=== PATIENT | male | born 1935 | race Caucasian/White ===

== ENCOUNTER 2017-05-22 17:55 | Emergency (ER) | payer MEDICARE ==
[2017-05-22 18:05] VITALS: BP 139/74
[2017-05-22 18:45] VITALS: BP 138/80
[2017-05-22 18:55] LABS: PLATELET COUNT 212 x10^3mcL (130-400)
[2017-05-22 19:12] LABS: CALCIUM 9.5 mg/dL (8.5-10.1); CARBON DIOXIDE 28.8 mmol/L (21-32); CHLORIDE SERUM 103 mmol/L (98-107); CREATININE SERUM 1.8 mg/dL (0.7-1.3); GLUCOSE SERUM 254 mg/dL (74-106); POTASSIUM SERUM 3.2 mmol/L (3.5-5.1); SODIUM SERUM 141 mmol/L (136-145)
[2017-05-22 19:17] LABS: ALBUMIN 3.4 g/dL (3.4-5.0); ALKALINE PHOSPHATASE 138 U/L (46-116); ALT/SGPT 48 U/L (16-63); AST/SGOT 66 U/L (15-37); BAND NEUTROPHIL 5 % (0-10); BASOPHIL 0 % (0-2); BILIRUBIN TOTAL 0.63 mg/dL (0.20-1.00); MONOCYTE 9 % (0-7); SEGMENTED NEUTROPHILS 63 % (37-75)
[2017-05-22 19:25] LABS: PLATELET MORPHOLOGY PLATELETS NORMAL; rbc morphology (normal/abnorm) ABNORMAL (NORMAL)
== END 2017-05-22 18:45 | disposition short-term general hospital (02) ==
LOC: ED 17:55
PROVIDERS: Emergency Medicine
DX: I21.09 ST elevation (STEMI) myocardial infarction involving other coronary artery of anterior wall (principal); I46.9 Cardiac arrest, cause unspecified; I10 Essential (primary) hypertension; E11.9 Type 2 diabetes mellitus without complications; Z88.2 Allergy status to sulfonamides; Z86.79 Personal history of other diseases of the circulatory system
CPT/HCPCS: 83880; J1644; J3490